=== PATIENT | male | born 1975 | race Two or more races ===

== ENCOUNTER → 2017-11-15 09:41 | Outpatient (CLI) | payer OTHER ==
[~2017-11-15 09:41] MED LIST: GENTAK5 ML OP
== END | disposition home or self-care (01) ==
LOC: LAB 09:41
DX: D51.0 Vitamin B12 deficiency anemia due to intrinsic factor deficiency (principal); D51.1 Vitamin B12 deficiency anemia due to selective vitamin B12 malabsorption with proteinuria; D51.3 Other dietary vitamin B12 deficiency anemia; E83.10 Disorder of iron metabolism, unspecified; E83.110 Hereditary hemochromatosis; I10 Essential (primary) hypertension; K21.9 Gastro-esophageal reflux disease without esophagitis